=== PATIENT | female | born 1980 | race Caucasian/White ===

== ENCOUNTER → 2016-12-25 | Outpatient (CLI) | payer BC ==
[~2016-12-25] MED LIST: LEVO175T25 PO; PRENTAB26 PO
[2016-12-25 09:41] LABS: BASO % 0.6 %; BASO ABS # 0.04 K/uL (0-0.2); COMPLETE YES; EOS % 5.7 %; HEMATOCRIT 46.5 % (37-47); IG% 0.7 %; LYMPH % 32.5 %; LYMPH ABS # 2.26 K/uL (1.2-3.4); MEAN CORPUSCULAR HEMOGLOBIN 27.9 pg (25-34); MEAN CORPUSCULAR HGB CONC 32.5 g/dl (32-36); MEAN PLATELET VOLUME 9.3 fL (7.4-10.4); MONO % 7.3 %; NEUT % 53.2 %; PLATELET COUNT 345 K/uL (130-400); RED BLOOD COUNT 5.41 M/uL (4.2-5.4); WHITE BLOOD COUNT 6.96 K/uL (4.8-10.8)
[2016-12-25 10:04] LABS: CHOLESTEROL/HDL RATIO 3.2; FERRITIN 59.3 ng/ml (8.0-388.0); THYROID STIMULATING HORMONE 1.13 uIu/ml (0.300-4.500)
== END | disposition home or self-care (01) ==
LOC: C.LAB 07:20
DX: E55.9 Vitamin D deficiency, unspecified (principal); E61.1 Iron deficiency; E53.8 Deficiency of other specified B group vitamins

== ENCOUNTER → 2017-02-01 | Outpatient (CLI) | payer BC | END | disposition home or self-care (01) | LOC: C.PAPS 16:38 | PROVIDERS: ATTEND Obstetrics & Gynecology | DX: Z01.419 Encounter for gynecological examination (general) (routine) without abnormal findings (principal); Z11.51 Encounter for screening for human papillomavirus (HPV) ==

== ENCOUNTER → 2017-05-14 | Outpatient (CLI) | payer BC | END | disposition home or self-care (01) | LOC: C.LAB 16:07 | DX: E61.1 Iron deficiency (principal); E56.9 Vitamin deficiency, unspecified; E03.9 Hypothyroidism, unspecified ==

== ENCOUNTER → 2017-12-10 | Outpatient (CLI) | payer BC | END | disposition home or self-care (01) | LOC: C.LAB 18:04 | DX: E61.1 Iron deficiency (principal) ==

== ENCOUNTER 2023-09-14 10:41 | Observation (INO) ==
--- NOTE | 2023-09-14 11:07 | Emergency Department Note ---
Impression & Plan Acute cholecystitis, Nausea & vomiting, Abdominal pain, RUQ ED Provider Note NAME: ZAINAB LEIJA AGE: 42 SEX: F : 1980 ARRIVES VIA: Walk-In INFORMANT: Patient, Patient significant other, initial nursing triage note ED PROVIDER(S): Jan Barillas MD CHIEF COMPLAINT: Upper abdominal pain, outpatient referral MEDICAL DECISION MAKING: Patient presented due to concern for epigastric was noted to have right upper quadrant pain. IV was established and blood work was obtained along with an EKG troponin chest X ray along with abdominal x-rays and right upper quadrant ultrasound. Patient was ordered IV Toradol Zofran and fluids. Patient blood work shows a normal white counts but does have a left shift and a normal hemoglobin and platelet count kidney functions unremarkable with normal LFTs and lipase urinalysis not evidence of blood or infection. Right upper quadrant ultrasound does show multiple gallstones thickened gallbladder wall there is concern for acute cholecystitis. I did speak the on-call general surgery team. Patient was ordered Mefoxin. Patient was informed of the findings. Patient does feel improved. I did speak with Dr. Rosales who did evaluate the patient at bedside and patient was taken to the OR for operative treatment. Discussion w/ other healthcare providers: Dr. Rosales with general surgery Prior /Outside records reviewed: None Differential diagnosis: Appendicitis, ovarian cyst, ovarian torsion, ectopic , TOA, PID, diverticulitis, UTI, obstruction, inflammatory bowel disease, renal colic, PUD, pancreatitis, biliary pathology, hernia, volvulus, constipation, as well as other pathologies were considered. Diagnostics, as interpreted by me: ECG: Normal sinus rhythm, rate of 86, normal intervals, normal axis no ST elevations. Cardiac monitoring: An order was placed for continuous cardiac monitoring. The monitor shows a rate of 87 with sinus rhythm. Patient was placed on pulse oximetry Medical decision rules: None Imaging studies: I informally interpreted the patient's right upper quadrant ultrasound which does show gallstones with formal report to follow. I informally interpreted the patient's chest and abdominal x-rays which did not show evidence of free air or pneumonia HPI: Patient presents due to concern for upper abdominal pain that she describes in the epigastrium just below the rib cage. Patient states that she developed the symptoms last evening thought it was heartburn related took antacid Gas-X and states that she vomited maybe 10 times during the night. The patient did have some associated chills. Patient states that she has not vomited in the last 2 hours. She does state that laying back may make it worse but being more scrunched up may improve some of the symptoms. The patient did recently travel to [place] but denies any changes in medications. Patient states that one of her work colleagues is sick but is unsure as to the symptoms or why. Patient did have a type of soup at a teacher conference was told that it was nondairy and not an gluten. Patient states that she has a history of celiac's and does not think that she has suffered any cross given the emanation but did have the soup yesterday. Patient denies any chest pains or shortness of breath. No history of DVT or PE no leg swelling or calf pain the patient does not take any control. No recent surgeries procedures or hospitalizations. PAST MEDICAL HISTORY: See Below PAST SURGICAL HISTORY: See Below SOCIAL HISTORY: See Below HOME MEDICATIONS: See Below ALLERGIES: See Below VITALS: See Below PHYSICAL EXAMINATION: GENERAL: NAD, non-toxic. Wearing glasses. EYE EXAM: Normal conjunctiva. PERRL, no anisocoria and EOM's grossly intact w/o pain. OROPHARYNX: Moist mucus membranes, grossly normal dentition. NECK: Trachea midline, no stridor. Supple, no nuchal rigidity, no adenopathy, non-tender. No signs of meningismus. FROM of the neck with good chin to chest and neck extension. LUNGS: Clear to auscultation. Normal chest wall mechanics. HEART: NSR, no MRG. ABDOMEN: Abdomen soft, right upper quadrant pain, positive Baron's,, no masses, no rebound or guarding. BACK: No CVA TTP. SKIN: No rashes and no bruising. UPPER EXTREMITIES: Upper extremities are grossly normal. LOWER EXTREMITIES: Grossly normal, no edema. NEURO EXAM: A&O x3, cranial nerves II-XII grossly intact, normal speech, moves all 4 extremities. Past Med/Surg History Medical History (Updated 09/14/23 @ 19:30 by Jan Barillas MD) Postcoital bleeding Vitiligo Celiac disease Hypothyroid Telangiectasia Positive reaction to tuberculin skin test History of chicken pox Surgical History [place] teeth extracted Family History Family/Other Breast cancer Endometriosis Spina bifida Grandmother (Maternal) Breast cancer Grandfather (Maternal) Prostate cancer Denies family history of Ovarian cancer Myocardial infarction Colorectal cancer Social History Smoking Status: Never smoker Second Hand Exposure: No; Do You Dip or Chew Tobacco: No; Hx Alcohol Use: Yes Alcohol type: wine Alcohol Intake Frequency: Monthly or Less Hx Substance Use: No Preferred Language: Romanian Communication Ability: Effective Visual Impairment: No Limitations Hearing Ability: Normal 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 Required: No Beliefs That Will Affect Care: None marital status: Current Living Situation: Spouse and Family Current Living Situation Comment: 2 story current occupational status: employed 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 How many Children do You have: 3 Other Information That Helps Us Care for You: No Feels Safe at Home: Yes Safety Concerns: Feels Safe At This Time Childhood Exposure to Second-Hand Smoke: No Diet: gluten free Diet Comment: gluten and dairy free caffeine: No during the past year weight has: remained stable Dental Care, Regularly: Yes Physical Activity Frequency: 3-4 Times per Week Seatbelt Use: always Sunscreen Use: Yes Assistive Devices: Contacts and Glasses Allergies Allergies Allergy/AdvReac Type Severity Reaction Status Date / Time gluten Allergy Unknown UNKNOWN Verified 08/21/23 12:59 iron dextran complex Allergy Unknown Verified 08/21/23 12:59 Home Meds Previous Rx's Medication Instructions Recorded levothyroxine 137 mcg tablet 137 mcg PO DAILY #90 tabs 02/07/23 oxycodone 5 mg tablet 5 - 10 mg (1 - 2 x 5 mg) PO 09/14/23 .[id number] PRN pain #15 tabs Results & Data (ED) Vital Signs Vital Signs - 24 hr 09/14/23 10:41 09/14/23 11:15 09/14/23 11:19 Temperature 36.6 C Temperature Source Temporal Artery Scan Pulse Rate 103 H Pulse Rate [Apical] 86 Pulse Rhythm [Apical] Regular Pulse Strength [Apical] Normal Respiratory Rate 18 18 Respiratory Effort / Characteristics Non-Labored Respiratory Depth Normal Respiratory Pattern Regular Blood Pressure 112/70 Blood Pressure [Right Arm] 126/80 Blood Pressure Mean 84 Blood Pressure Mean [Right Arm] 95 Blood Pressure Position [Right Arm] Sitting Pulse Oximetry 100 100 Oxygen Delivery Method Room Air Room Air Sepsis Recent Fever Within 48 Hours No Sepsis New/Unexplained Change in Mental Status N/A Sepsis Action Taken by Nursing No Action Required 09/14/23 11:21 09/14/23 11:47 09/14/23 14:40 Temperature Temperature Source Pulse Rate 83 91 H Pulse Rate [Apical] 77 Pulse Rhythm [Apical] Pulse Strength [Apical] Respiratory Rate 18 20 Respiratory Effort / Characteristics Non-Labored Respiratory Depth Normal Respiratory Pattern Regular Blood Pressure Blood Pressure [Right Arm] 121/75 Blood Pressure Mean Blood Pressure Mean [Right Arm] 90 Blood Pressure Position [Right Arm] Pulse Oximetry 100 96 Oxygen Delivery Method Room Air Room Air Sepsis Recent Fever Within 48 Hours Sepsis New/Unexplained Change in Mental Status Sepsis Action Taken by Nursing 09/14/23 15:12 Temperature 36.9 C Temperature Source Oral Pulse Rate Pulse Rate [Apical] 80 Pulse Rhythm [Apical] Pulse Strength [Apical] Respiratory Rate 17 Respiratory Effort / Characteristics Non-Labored Spontaneous Respiratory Depth Normal Respiratory Pattern Regular Blood Pressure Blood Pressure [Right Arm] 116/89 Blood Pressure Mean Blood Pressure Mean [Right Arm] 98 Blood Pressure Position [Right Arm] Pulse Oximetry 100 Oxygen Delivery Method Room Air Sepsis Recent Fever Within 48 Hours Sepsis New/Unexplained Change in Mental Status Sepsis Action Taken by [facility] Medications Current Medication List: was personally reviewed by me Laboratory Data Attestation: I reviewed the patient's lab results. 09/14/23 11:24 09/14/23 11:24 Lab Results 09/14/23 09/14/23 09/14/23 Range/Units 11:24 11:28 15:05 WBC 9.94 (4.8-10.8) K/ul RBC 5.54 H (4.20-5.40) M/uL Hgb 14.7 (12.0-16.0) g/dl Hct 45.6 (37.0-47.0) % MCV 82.3 (80.0-100.0) fL MCH 26.5 (25.0-34.0) pg MCHC 32.2 (32.0-36.0) g/dL RDW Std Deviation 43.1 (36.4-46.3) fL RDW Coeff of [place] 14.5 (11.5-14.5) % Plt Count 370 (130-400) K/uL MPV 9.4 (9.4-12.4) fL Immature Gran % (Auto) 0.4 % Neut % (Auto) 79.6 % Lymph % (Auto) 14.4 % [place] % (Auto) 4.5 % Eos % (Auto) 0.5 % Baso % (Auto) 0.6 % Neut # (Auto) 7.91 H (1.40-6.50) K/uL Lymph # (Auto) 1.43 (1.20-3.40) K/uL [place] # (Auto) 0.45 (0.11-0.59) K/uL Eos # (Auto) 0.05 (0.00-0.50) K/uL Baso # (Auto) 0.06 (0.00-0.20) K/uL Immature Gran # (Auto) 0.04 (0.01-0.20) K/uL Sodium 139 (136-145) mmol/L Potassium 3.8 (3.5-5.1) mmol/L Chloride 104 (98-107) mmol/L Carbon Dioxide 27 (21-32) mmol/L Anion Gap 8 (3-11) BUN 9 (6-23) mg/dl Creatinine 0.78 (0.6-1.2) mg/dl Est Cr Clr Drug Dosing 93.8 ml/min Est GFR ( Amer) 107.9 ml/min Est GFR (Non-Af Amer) 93.1 ml/min BUN/Creatinine Ratio 11.5 (10-20) Glucose 101 H (70-99(Fasting)) mg/dl Calcium 9.9 (8.6-10.3) mg/dl Total Bilirubin 0.7 (0.2-1.0) mg/dl AST 14 (13-39) U/L ALT 11 (7-52) U/L Alkaline Phosphatase 71 (34-104) U/L Troponin I High Sens 3.3 (0-14) pg/ml Total Protein 7.9 (6.0-8.3) gm/dl Albumin 4.7 (3.4-5.0) gm/dl Globulin 3.2 (2.5-4.0) gm/dl Albumin/Globulin Ratio 1.5 (0.9-2) Lipase 32 (11-82) U/L Urine Color Yellow Urine Appearance Clear (Clear) Urine pH 6.5 (4.5-7.5) Ur Specific [place] 1.015 (1.000-1.030) Urine Protein Negative (Negative) Urine Glucose (UA) Negative (Negative) Urine Ketones Negative (Negative) Urine Blood Negative (Negative) Urine Nitrite Negative (Negative) Urine Bilirubin Negative (Negative) Urine Urobilinogen Negative (Negative) Ur Leukocyte Esterase Negative (Negative) POC Ur Test NEG (NEG) Administered Medications Lactated Ringer's (Lr) 1,000 mls @ 100 mls/hr IV .Q10H LUIS ALBERTO Stop: 10/14/23 18:24 Last Admin: 09/14/23 18:53 Dose: 100 mls/hr Documented By: NICHOLAS Discontinued Medications Bupivacaine HCl/Epinephrine Bitart (Bupivacaine/Epinephrine 0.25% 1:200,000 30 Ml Vial) Confirm Administered Dose 30 ml .ROUTE .[facility] Stop: 09/14/23 15:03 Last Admin: 09/14/23 17:05 Dose: 30 ml Documented By: [id number] Sodium Chloride (Nss) 1,000 mls @ 999 mls/hr IV .Q1H1M STA Stop: 09/14/23 12:44 Last Infusion: 09/14/23 13:05 Dose: Infused Documented By: Admin: 09/14/23 11:55 Dose: 999 mls/hr Documented By: JORDIN Cefoxitin Sodium (Mefoxin) 2,000 mg in 60 mls @ 100 mls/hr IV NOW STA Stop: 09/14/23 13:35 Last Infusion: 09/14/23 14:06 Dose: Infused Documented By: Admin: 09/14/23 13:12 Dose: 100 mls/hr Documented By: GAMAL Lactated Ringer's (Lr) 1,000 mls @ 15 mls/hr IV .Q24H LUIS ALBERTO Stop: 10/14/23 15:29 Last Infusion: 09/14/23 15:56 Dose: Infused Documented By: Admin: 09/14/23 15:24 Dose: 15 mls/hr Documented By: ALVARO Ketorolac Tromethamine (Ketorolac Tromethamine 15 Mg/Ml Vial) 10 mg IV NOW STA Stop: 09/14/23 11:45 Last Admin: 09/14/23 11:54 Dose: 10 mg Documented By: JORDIN Miscellaneous ( Floseal Hemostatic Matrix 10ml) 10 ml TOP ONCE ONE Stop: 09/14/23 17:04 Last Admin: 09/14/23 17:03 Dose: 10 ml Documented By: [id number] Ondansetron HCl (Ondansetron Inj 2 Mg/Ml 2 Ml Vial) 4 mg IV NOW STA Stop: 09/14/23 11:45 Last Admin: 09/14/23 11:54 Dose: 4 mg Documented By: JORDIN Imaging Data Radiologist's Impression: Chest/Abdomen X-ray 09/14/23 11:45 CHEST AND ABDOMEN 2 VIEWS HISTORY: epigastric pain COMPARISON: Chest and abdominal series 11/24/2022. FINDINGS: The lungs are clear. The cardiomediastinal silhouette is within normal limits. There is no pneumoperitoneum or pneumatosis. The bowel gas pattern is unremarkable. No evidence for bowel obstruction. No renal or ureteral calculi. IMPRESSION: No acute cardiopulmonary process. No evidence for bowel obstruction. ACT 112: Negative or not required by law. Electronically signed by: Missael De Souza M.D. 09/14/2023 1:32 PM Gallbladder Ultrasound 09/14/23 11:45 ABDOMINAL ULTRASOUND, RIGHT UPPER QUADRANT HISTORY: epigastric, RUQ pain. COMPARISON: Abdominal ultrasound 05/06/2007. FINDINGS: Pancreas: The pancreas demonstrates a normal echotexture. Liver: Unremarkable. Gallbladder: Multiple small gallstones with a thickened gallbladder wall. The sonographic Baron's sign was unable to be properly evaluated due to the patient's recent pain medication. CBD: 5 mm. Right kidney: No hydronephrosis. IMPRESSION: Cholelithiasis with gallbladder wall thickening. Acute cholecystitis is the diagnosis of exclusion. Follow-up surgical consultation recommended. ACT 112: Negative or not required by law. Electronically signed by: Missael De Souza M.D. 09/14/2023 12:42 PM Discharge Plan Visit Data Chief Complaint: Cardiac Assessment Stated Complaint: VOMITING, PAIN BELOW BREAST, REF BY DOC ED Provider: Jan Barillas Discharge Problem: Acute cholecystitis, Nausea & vomiting, Abdominal pain, RUQ Patient Disposition: Admitted As Inpatient Discharge Instructions Interventions: ED Discharge Assessment Last Done: 09/14/23 15:06 Discharge Problem: Nausea & vomiting Qualifiers: Vomiting type: unspecified Qualified Code(s): R11.2 - Nausea with vomiting, unspecified
[2023-09-14] MEDS: KETOROLAC TROMETHAMINE 15 MG/ML VIAL IV STA (11:54)
[2023-09-14] MEDS: ONDANSETRON INJ 2 MG/ML 2 ML VIAL IV STA (11:54)
[2023-09-14] MEDS: SODIUM CHLORIDE 0.9% 1,000 ML IV STA (11:55)
[2023-09-14 12:07] LABS: Basophils # (auto) 0.06 K/uL (0.00-0.20); Basophils % (auto) 0.6 %; Eosinophils # (auto) 0.05 K/uL (0.00-0.50); Eosinophils % (auto) 0.5 %; Hematocrit (blood only) 45.6 % (37.0-47.0); Hemoglobin 14.7 g/dl (12.0-16.0); Immature Granulocytes # (auto) 0.04 K/uL (0.01-0.20); Immature Granulocytes % (auto) 0.4 %; Lymphocytes # (auto) 1.43 K/uL (1.20-3.40); Lymphocytes % (auto) 14.4 %; Mean Corpuscular Hemoglobin 26.5 pg (25.0-34.0); Mean Corpuscular Hgb Conc 32.2 g/dL (32.0-36.0); Mean Corpuscular Volume 82.3 fL (80.0-100.0); Mean Platelet Volume 9.4 fL (9.4-12.4); Monocytes # (auto) 0.45 K/uL (0.11-0.59); Monocytes % (auto) 4.5 %; Neutrophils # (auto) 7.91 K/uL (1.40-6.50); Neutrophils % (auto) 79.6 %; Platelet Count 370 K/uL (130-400); RDW Coefficient of Variation 14.5 % (11.5-14.5); RDW Standard Deviation 43.1 fL (36.4-46.3); Red Blood Count 5.54 M/uL (4.20-5.40); White Blood Count 9.94 K/ul (4.8-10.8)
[2023-09-14 12:23] LABS: Appearance Urine Clear (Clear); Bilirubin Urine Negative (Negative); Blood Urine Negative (Negative); Color Urine Yellow; Glucose Urine UA Negative (Negative); Ketones Urine Negative (Negative); Leukocyte Esterase Urine Negative (Negative); Nitrite Urine Negative (Negative); Protein Urine Negative (Negative); Specific Gravity Urine 1.015 (1.000-1.030); Urobilinogen Urine Negative (Negative); pH Urine 6.5 (4.5-7.5)
[2023-09-14 12:35] LABS: Albumin Globulin Ratio 1.5 (0.9-2); Albumin Level 4.7 gm/dl (3.4-5.0); BUN Creatinine Ratio 11.5 (10-20); Bilirubin,Total 0.7 mg/dl (0.2-1.0); Calcium 9.9 mg/dl (8.6-10.3); Creatinine Clr Calc Pharmacy 93.8 ml/min; Est GFR (African American) 107.9 ml/min; Est GFR (Non-African American) 93.1 ml/min; Globulin 3.2 gm/dl (2.5-4.0); Potassium 3.8 mmol/L (3.5-5.1); Total Protein 7.9 gm/dl (6.0-8.3)
[2023-09-14 12:41] LABS: Troponin I High Sensitivity 3.3 pg/ml (0-14)
--- NOTE | 2023-09-14 12:44 | Ultrasound Report ---
ABDOMINAL ULTRASOUND, RIGHT UPPER QUADRANT HISTORY: epigastric, RUQ pain. COMPARISON: Abdominal ultrasound 05/06/2007. FINDINGS: Pancreas: The pancreas demonstrates a normal echotexture. Liver: Unremarkable. Gallbladder: Multiple small gallstones with a thickened gallbladder wall. The sonographic Baron's si gn was unable to be properly evaluated due to the patient's recent pain medication. CBD: 5 mm. Right kidney: No hydronephrosis. IMPRESSION: Cholelithiasis with gallbladder wall thickening. Acute cholecystitis is the diagnosis of exclusion. F ollow-up surgical consultation recommended. ACT 112: Negative or not required by law. Electronically signed by: Missael De Souza M.D. 09/14/2023 12:42 PM
[2023-09-14] MEDS: cefOXitin 2,000 MG/60 ML BAG IV STA (13:12)
--- NOTE | 2023-09-14 13:34 | XRay Report ---
CHEST AND ABDOMEN 2 VIEWS HISTORY: epigastric pain COMPARISON: Chest and abdominal series 11/24/2022. FINDINGS: The lungs are clear. The cardiomediastinal silhouette is within normal limits. There is no pneumoperitoneum or pneumatosis. The bowel gas pattern is unremarkable. No evidence for b owel obstruction. No renal or ureteral calculi. IMPRESSION: No acute cardiopulmonary process. No evidence for bowel obstruction. ACT 112: Negative or not required by law. Electronically signed by: Missael De Souza M.D. 09/14/2023 1:32 PM
[2023-09-14] MEDS ORDERED: LIDOCAINE 2% 2 ML VIAL/AMP(20MG/ML) INFIL ONE (14:51)
[2023-09-14] MEDS ORDERED: fentaNYL citrate PF 100 MCG/2 ML VIAL ONE ×2 (14:51→16:21)
[2023-09-14] MEDS ORDERED: ROCURONIUM BROMIDE 10 MG/ML 5 ML VIAL IV ONE (14:51)
[2023-09-14] MEDS ORDERED: PROPOFOL IV EMULSION 10 MG/ML 20 ML VIAL IV ONE (14:51)
[2023-09-14] MEDS ORDERED: ONDANSETRON INJ 2 MG/ML 2 ML VIAL ONE (14:51)
[2023-09-14] MEDS ORDERED: MIDAZOLAM HCL 1 MG/ML 2ML VIAL ONE (14:51)
[2023-09-14] MEDS ORDERED: ACETAMINOPHEN 1000 MG/100 ML IV IV ONE (14:53)
[2023-09-14] MEDS ORDERED: DROPERIDOL 5 MG/2 ML VIAL ONE (15:00)
[2023-09-14] MEDS: LACTATED RINGER'S 1,000 ML IV SCH ×2 (15:24→18:53)
[2023-09-14] MEDS ORDERED: fentaNYL citrate PF 100 MCG/2 ML VIAL IV PRN (15:34)
[2023-09-14] MEDS ORDERED: ONDANSETRON INJ 2 MG/ML 2 ML VIAL IV PRN ×2 (15:34→18:25)
[2023-09-14] MEDS ORDERED: PROMETHAZINE HCL 6.25 MG in SODIUM CHLORIDE 0.9% 50 ML IV PRN (15:34)
[2023-09-14] MEDS ORDERED: ePHEDrine sulfate 50 MG/ML AMP IV PRN (15:34)
[2023-09-14] MEDS ORDERED: ATROPINE SULFATE 0.1 MG/ML 10ML SYR IV PRN (15:34)
[2023-09-14] MEDS ORDERED: HYDROmorphone INJ 2 MG/ML SYR/VIAL IV PRN (15:34)
--- NOTE | 2023-09-14 15:34 | Anesthesiology Consultation ---
Date of Service September 14, 2023 Assessment & Plan Chart Review Chart Review: Acceptable Risk for Surgery and Patient NOT seen in Pre Admission Testing Consults Requested none ASA ASA2E Proposed Anesthesia Anesthesia Type: General Risk / Benefits Reviewed With: PT / POA / Parent / Guardian, Accepts Plan and Informed Consent Obtained History Surgery Operation Date: 09/14/23 13:05 Proposed Procedures p Laparoscopic Cholecystectomy, Possible Open, Possible Cholangiogram - Shay Rosales, DO Height/Weight Height: 5 ft 8 in Weight: 71.4 kg Allergies Allergy/AdvReac Type Severity Reaction Status Date / Time gluten Allergy Unknown UNKNOWN Verified 08/21/23 12:59 iron dextran complex Allergy Unknown Verified 08/21/23 12:59 Medications Home Medications Medication Instructions Recorded Confirmed Last Taken levothyroxine 137 mcg tablet 137 mcg PO DAILY #90 tabs 02/07/23 09/14/23 Unknown Active Medications Generic Name Dose Route Start Last Admin Trade Name Freq PRN Reason Stop Dose Admin Lactated Ringer's 1,000 mls @ 15 mls/hr 09/14/23 15:30 09/14/23 15:24 Lr IV 10/14/23 15:29 15 mls/hr .Q24H LUIS ALBERTO Administration KVO NPO Date Last Intake of Fluids: 09/14/23 Time Last Intake of Fluids: 05:00 Date Last Intake of Solids: 09/13/23 Time Last Intake of Solids: 19:30 Past Medical History Medical History Postcoital bleeding Vitiligo Celiac disease Hypothyroid Telangiectasia Positive reaction to tuberculin skin test History of chicken pox Exercise / Class Metabolic Activity II 4-5 Yardwork/Stairs/Walk up hill Past Family History Family History Family/Other Breast cancer Endometriosis Spina bifida Grandmother (Maternal) Breast cancer Grandfather (Maternal) Prostate cancer Denies family history of Ovarian cancer Myocardial infarction Colorectal cancer Past Surgical History Surgical History [place] teeth extracted Past Anesthesia History No Hx of Anesthesia Complications and No Family Hx of Anesthesia Complications History of PONV No Hx of PONV and No Hx of Motion Sickness Social History Smoking Status: Current every day smoker Do You Dip or Chew Tobacco: No Hx Alcohol Use: Yes Alcohol type: wine Hx Substance Use: No Physical Exam Vital Signs Last Vital Signs Temp 36.9 C 09/14/23 15:12 Pulse 80 09/14/23 15:12 Resp 17 09/14/23 15:12 BP 116/89 09/14/23 15:12 Pulse Ox 100 09/14/23 15:12 O2 Del Method Room Air 09/14/23 15:12 ENMT Mouth: no dentition abnormality Thyromental Distance: > or= 3.5 Finger Breadths Mallampati Class: II Neck normal visual inspection Respiratory normal respiratory effort Auscultation: lungs clear to auscultation bilaterally Cardiovascular Rate/Rhythm: regular rate and regular rhythm Psychiatric Orientation: alert Testing Laboratory Results 09/14/23 11:24 09/14/23 11:24 Urine Color Yellow 09/14/23 11:28 Urine Appearance Clear (Clear) 09/14/23 11:28 Urine pH 6.5 (4.5-7.5) 09/14/23 11:28 Ur Specific [place] 1.015 (1.000-1.030) 09/14/23 11:28 Urine Protein Negative (Negative) 09/14/23 11:28 Urine Glucose (UA) Negative (Negative) 09/14/23 11:28 Urine Ketones Negative (Negative) 09/14/23 11:28 Urine Nitrite Negative (Negative) 09/14/23 11:28 Ur Leukocyte Esterase Negative (Negative) 09/14/23 11:28 09/14/23 15:05 POC Ur Test NEG
--- NOTE | 2023-09-14 15:55 | History & Physical Report ---
Date of Service September 14, 2023 Assessment & Plan (1) Acute cholecystitis: Plan: Her US images and results were personally viewed and interpreted by myself She has sonographic and physical exam findings consistent with acute cholecystitis Will plan on laparoscopic cholecystectomy, possible open, possible IOC Consent was obtained, risks discussed including bleeding, infection, bile leak, ductal injury History of Present Illness Chief Complaint: Abdominal pain Primary Care Provider: Danny Schmitt DO This is a 42 yo female who presented with epigastric and RUQ abdominal pain since yesterday evening. She states it was sharp with radiation to the back. She had an episode of emesis. She denies any scleral icterus, jaundice, tea- colored urine. No abdominal surgeries. Allergies Allergy/AdvReac Type Severity Reaction Status Date / Time gluten Allergy Unknown UNKNOWN Verified 08/21/23 12:59 iron dextran complex Allergy Unknown Verified 08/21/23 12:59 Home Medications Medication Instructions Recorded Confirmed Type levothyroxine 137 mcg tablet 137 mcg PO DAILY #90 tabs 02/07/23 09/14/23 Rx Past Med/Surg History Medical History (Updated 09/14/23 @ 15:54 by Shay Rosales DO) Postcoital bleeding Vitiligo Celiac disease Hypothyroid Telangiectasia Positive reaction to tuberculin skin test History of chicken pox Surgical History [place] teeth extracted Family History Family/Other Breast cancer Endometriosis Spina bifida Grandmother (Maternal) Breast cancer Grandfather (Maternal) Prostate cancer Denies family history of Ovarian cancer Myocardial infarction Colorectal cancer Social History Smoking Status: Current every day smoker Second Hand Exposure: No; Do You Dip or Chew Tobacco: No; Hx Alcohol Use: Yes Alcohol type: wine Alcohol Intake Frequency: Monthly or Less Hx Substance Use: No Preferred Language: Georgian Communication Ability: Effective Visual Impairment: No Limitations Hearing Ability: Normal Spinner Concrete Pipe Required: No marital status: Current Living Situation: Spouse and Family Current Living Situation Comment: spouse and 3 kids current occupational status: employed 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 How many Children do You have: 3 Feels Safe at Home: Yes Childhood Exposure to Second-Hand Smoke: No Diet: gluten free Diet Comment: gluten and dairy free caffeine: No during the past year weight has: remained stable Dental Care, Regularly: Yes Physical Activity Frequency: 3-4 Times per Week Seatbelt Use: always Sunscreen Use: Yes Assistive Devices: Contacts and Glasses Review of Systems Constitutional: no fever and no chills Eyes: no blind spots and no worsening vision Ear, Nose, Mouth, Throat: no ear pain and no hearing loss Respiratory: no cough and no dyspnea Cardiovascular: no chest pain and no dyspnea on exertion Gastrointestinal: + abdominal pain, + nausea and + vomitin g Genitourinary: no dysuria and no hot flashes Musculoskeletal: no back pain and no neck pain Integumentary: no acne, no skin ulcer, no erythema and no urticaria Neurologic: no gait abnormality, no confusion and no memory loss Psychiatric: no behavioral changes and no depression Hematologic / Lymphatic: no easy bleeding and no easy bruising Physical Exam Constitutional: WD/WN, vitals as above Eyes: PERRL, conjunctivae normal, anicteric sclerae ENMT: external ear and nose normal, oropharynx normal Neck: trachea midline, no thyromegaly Respiratory: normal respiratory effort, lungs clear to auscultation Cardiovascular: RRR, no murmur, no edema Gastrointestinal (Abdomen): Inspection/Auscultation: abdomen normal to inspection; abdomen not distended Percussion/Palpation: + abdomen tender (RUQ), + guarding and abdomen soft; no ascites Musculoskeletal: no cyanosis or clubbing, extremities motor strength 5/5 Skin: no rashes, warm and dry Neurologic: PERRL, EOMI, accommodation nl, no face palsy, no dysarthria Psychiatric: A+Ox3, euthymic affect Results & Data Results & Data Vital Signs (Past 12 Hours) Vital Signs Temp Pulse Pulse Resp BP BP Pulse Ox 09/14/23 15:12 36.9 C 80 17 116/89 100 09/14/23 14:40 77 20 121/75 96 09/14/23 11:47 91 H 18 100 09/14/23 11:21 83 09/14/23 11:19 09/14/23 11:15 86 18 126/80 100 09/14/23 10:41 36.6 C 103 H 18 112/70 100 O2 Del Method 09/14/23 15:12 Room Air 09/14/23 14:40 Room Air 09/14/23 11:47 Room Air 09/14/23 11:21 09/14/23 11:19 Room Air 09/14/23 11:15 Room Air 09/14/23 10:41 PG Care Time/CCT Total # of Minutes Spent Total Time Spent with Patient: Total time spent is greater than 50% in coordination of care (as documented) at patient's floor/unit and/or counseling patient: Coding Level of Care Code 53959 INT INP/OBS CARE 3/75MIN Diagnoses Acute cholecystitis K81.0
[2023-09-14] MEDS ORDERED: diphenhydrAMINE 50 MG/ML VIAL ONE (16:29)
[2023-09-14] MEDS ORDERED: KETOROLAC 30 MG/ML VIAL ONE (16:38)
[2023-09-14] MEDS ORDERED: GLYCOPYRROLATE 0.2 MG/ML VIAL ONE (16:42)
[2023-09-14] MEDS ORDERED: NEOSTIGMINE METHYLSULFATE 1 MG/ML 10ML VIAL ONE (16:42)
[2023-09-14] MEDS: FLOSEAL HEMOSTATIC MATRIX 10ML TOP ONE (17:03)
[2023-09-14] MEDS: BUPIVACAINE/EPINEPHRINE 0.25% 1:200,000 30 ML VIAL ONE (17:05)
--- NOTE | 2023-09-14 17:11 | Post Operative Brief Note ---
PG Immediate Post Op with CF Date of Surgery September 14, 2023 Pre & Post Diagnosis Operation Date: 09/14/23 13:05 Pre-Op Diagnosis: Acute cholecystitis Post-Op Diagnosis: Acute cholecystitis I identified the patient and participated in the time-out.: Yes Procedure Operation Date: 09/14/23 13:05 Actual Procedures p Laparoscopic Cholecystectomy(Not Applicable) - Shay Rosales DO Surgeon Shay Rosales DO Line Assembler Aircraft Aretha MCKOEN Estimated Blood Loss 25 Findings See Below Acute cholecystitis, hydrops of gallbladder Specimens Specimen Description: A. Gallbladder and contents Anesthesia Type General Complications none Disposition Disposition: Recovery Room
--- NOTE | 2023-09-14 17:15 | Operative Report ---
PG Post Operative Report Pre & Post Diagnosis Operation Date: 09/14/23 13:05 Pre-Op Diagnosis: Acute cholecystitis Post-Op Diagnosis: Acute cholecystitis I identified the patient and participated in the time-out.: Yes Procedure Operation Date: 09/14/23 13:05 Actual Procedures p Laparoscopic Cholecystectomy(Not Applicable) - Shay Rosales DO Surgeon Shay Rosales DO Trailer Driver Aretha MCKEON Estimated Blood Loss 25 Findings See Below Acute cholecystitis, gallbladder hydrops Fluids see anesthesia record Specimens Gallbladder to pathology Drains None Anesthesia Type General Complications none Disposition Disposition: Recovery Room Indications 42 yo female with acute cholecystitis Description of Procedure The patient was brought to the operating room and placed in the supine position with both arms extended. At this time she underwent general endotracheal anesthesia without any problems. She was given appropriate pre-operative antibiotics. Her abdomen prepped and draped in the usual sterile fashion. A timeout was called, the procedure was verified as Laparoscopic cholecystectomy, possible open, possible intra-operative cholangiogram. Surgical, nursing and anesthesia teams agreed and the procedure was begun. After injection of 0.25% Marcaine with epinephrine, a supraumbilical vertical incision was made and carried down to the fascia using S-retractors. The abdominal wall was then elevated with towel clamps and abdomen entered using the Veress needle confirming position using the saline drop test. Pneumoperitoneum was established. 5mm trocar was placed. Laparoscope was introduced. No injury from entry into the abdomen was visualized after inspection of the abdomen. Three further ports were placed under direct visualization. One 11mm in the subxiphoid region and two 5mm in the RUQ. At this time the abdomen was ins pected and the gallbladder identified. The gallbladder fundus was grasped and retracted cephalad. The gallbladder infundibulum was then grasped and retracted laterally. The cystic duct and cystic artery were then identified and skeletonized. The critical view of safety was obtained. They were both then clipped twice proximally and once distally and then divided using scissors. The gallbladder was then taken off of the liver bed using electrocautery and placed in an endocatch bag and removed from the subxiphoid port. The gallbladder itself was very friable and adhered to the liver bed. The liver bed was cauterized and 10mL Floseal hemostatic agent was placed in the gallbladder fossa. The liver bed was then inspected and no bile leak or bleeding was evident. The subxiphoid port was then closed using 0-Vicryl using the suture passer. The trocars were then removed under direct visualization and no bleeding was present. Abdomen was desufflated. The skin was then closed using 4-0 Monocryl in a subcuticular fashion. Surgical glue was applied. Needle and sponge counts were correct x 2. At this time the patient was awoken from anesthesia and extubated having remained stable throughout the entire case. The patient was then transported to PACU in stable condition. The physician economic research assistant was present and scrubbed for the entire case. She was essential in positioning, prepping and draping the patient, driving the laparoscope, retraction and exposure, closure of the incisions and placement of the dressings. I attest to the content of the Intraoperative Record and any orders documented therein. Any exceptions are noted below.
--- NOTE | 2023-09-14 18:16 | Anesthesiology Progress Note ---
Date of Service September 14, 2023 Anesthesia Post Procedure Vital Signs Vital Signs: Temp Pulse Pulse Resp BP BP Pulse Ox 09/14/23 18:05 37.2 C 53 L 16 138/83 98 09/14/23 17:55 36.4 C L 51 L 16 131/80 98 09/14/23 17:45 55 L 16 138/84 100 09/14/23 17:35 73 14 120/78 99 09/14/23 17:27 36.0 C L 86 16 122/81 100 09/14/23 15:12 36.9 C 80 17 116/89 100 09/14/23 14:40 77 20 121/75 96 09/14/23 11:47 91 H 18 100 09/14/23 11:21 83 09/14/23 11:19 09/14/23 11:15 86 18 126/80 100 09/14/23 10:41 36.6 C 103 H 18 112/70 100 O2 Del Method O2 Flow Rate 09/14/23 18:05 Room Air 09/14/23 17:55 Room Air 09/14/23 17:45 Oxymask 4 09/14/23 17:35 Oxymask 4 09/14/23 17:27 Oxymask 4 09/14/23 15:12 Room Air 09/14/23 14:40 Room Air 09/14/23 11:47 Room Air 09/14/23 11:21 09/14/23 11:19 Room Air 09/14/23 11:15 Room Air 09/14/23 10:41 Transfer of Care Handoff Completed per policy Notes Mental Status: alert / awake / arousable Patient Amnestic to Procedure: Yes Nausea / Vomiting: adequately controlled Pain: adequately controlled Airway Patency, RR, SpO2: stable & adequate BP & HR: stable & adequate Hydration State: stable & adequate Anesthetic Complications: no major complications apparent
[2023-09-14] MEDS ORDERED: MoRPHine SULFATE 4 MG/ML 1 ML CARP\\VIAL IV PRN (18:25)
[2023-09-14] MEDS ORDERED: MoRPHine SULFATE 2 MG/ML CARP IV PRN (18:25)
[2023-09-14] MEDS ORDERED: oxyCODONE HCL IR 5 MG TAB (IMMEDIATE RELEASE) PO PRN (18:25)
[2023-09-14] MEDS ORDERED: ACETAMINOPHEN 1,000 MG/100 ML VIAL IV PRN (18:25)
--- NOTE | 2023-09-14 21:31 | Electrocardiogram Report ---
Test Reason : Blood Pressure : / mmHG Vent. Rate : 086 BPM Atrial Rate : 086 BPM P-R Int : 124 ms QRS Dur : 078 ms QT Int : 372 ms P-R-T Axes : 078 039 071 degrees QTc Int : 445 ms Normal sinus rhythm Normal ECG No previous ECGs available Confirmed by Scot Montes ([id number]) on 09/14/2023 9:31:35 PM Referred By: Danny Schmitt Confirmed By:Scot Montes
[2023-09-14] MEDS: oxyCODONE HCL IR 5 MG TAB (IMMEDIATE RELEASE) PO PRN (22:12)
[2023-09-15] MEDS: LEVOTHYROXINE SODIUM 137 MCG TABLET PO SCH (06:01)
[2023-09-15 07:29] LABS: Basophils # (auto) 0.01 K/uL (0.00-0.20); Basophils % (auto) 0.1 %; Hemoglobin 11.8 g/dl (12.0-16.0); Immature Granulocytes # (auto) 0.06 K/uL (0.01-0.20); Immature Granulocytes % (auto) 0.6 %; Mean Corpuscular Hemoglobin 26.9 pg (25.0-34.0); Mean Corpuscular Hgb Conc 31.9 g/dL (32.0-36.0); Mean Corpuscular Volume 84.5 fL (80.0-100.0); Mean Platelet Volume 9.6 fL (9.4-12.4); Monocytes # (auto) 0.46 K/uL (0.11-0.59); Monocytes % (auto) 4.6 %; Neutrophils # (auto) 8.53 K/uL (1.40-6.50); Neutrophils % (auto) 85.7 %; Platelet Count 281 K/uL (130-400); RDW Coefficient of Variation 14.7 % (11.5-14.5); RDW Standard Deviation 45.7 fL (36.4-46.3); Red Blood Count 4.38 M/uL (4.20-5.40); White Blood Count 9.96 K/ul (4.8-10.8)
[2023-09-15] MEDS: ACETAMINOPHEN 325 MG TAB PO PRN (07:32)
[2023-09-15 07:49] LABS: Albumin Globulin Ratio 1.5 (0.9-2); Albumin Level 3.6 gm/dl (3.4-5.0); BUN Creatinine Ratio 12.3 (10-20); Bilirubin,Total 0.7 mg/dl (0.2-1.0); Calcium 8.5 mg/dl (8.6-10.3); Creatinine Clr Calc Pharmacy 100.2 ml/min; Est GFR (African American) 116.9 ml/min; Est GFR (Non-African American) 100.9 ml/min; Globulin 2.4 gm/dl (2.5-4.0); Potassium 4.1 mmol/L (3.5-5.1)
--- NOTE | 2023-09-15 09:10 | Surgery Progress Note ---
Date of Service September 15, 2023 Assessment & Plan (1) S/P laparoscopic cholecystectomy: Plan: POD #1 s/p Lap Audrey. She is doing well. Her pain is controlled. She denies fevers or chills. She is tolerating a regular diet. Incisions look good. She is voiding on her own and ambulating in her room without issue. She is ok to go home today. Discharge instructions reviewed. She will follow-up with Dr. Rosales in outpatient clinic. Patient seen and examined with Dr. Rosales. Admission and Anticipated Discharge Date Admission Date: September 14, 2023 Supervising Physician Co-Signing Physician Notes Doing well POD#1 Tolerating diet without N/V Pain controlled Will discharge patient today with f/u with me in 2 weeks Subjective Betty is resting comfortably in bed. She reports expected post-op pain. She denies fevers or chills. She denies nausea or vomiting. Review of Systems Constitutional: as per Subjective / HPI; no fever and no chills Cardiovascular: no chest pain, no chest pain at rest, no chest pain with activity, no dyspnea, no dyspnea at rest, no dyspnea on exertion and no calf pain Gastrointestinal: + abdominal pain (expected at surgical i ncisions. ); no nausea and no vomiting Abdominal incisions are intact with surgical glue in place- no signs of infection. Results & Data Vital Signs (Past 12 Hours) Vital Signs Temp Pulse Resp BP Pulse Ox O2 Del Method 09/15/23 08:01 36.6 C 56 L 16 104/71 98 Room Air 09/15/23 05:57 36.8 C 81 16 108/72 94 Room Air 09/15/23 02:13 36.8 C 61 16 117/81 98 Room Air 09/14/23 21:40 36.8 C 67 16 108/72 98 Room Air PG Care Time/CCT Total # of Minutes Spent Total Time Spent with Patient: Total time spent is greater than 50% in coordination of care (as documented) at patient's floor/unit and/or counseling patient: Coding Level of Care Code 63066 Post Operative Follow-Up Diagnoses S/P laparoscopic cholecystectomy Z90.49
--- NOTE | 2023-09-18 13:21 | Discharge Summary ---
Date of Service September 15, 2023 Admission HPI Per Admitting Provider This is a 42 yo female who presented with epigastric and RUQ abdominal pain since yesterday evening. She states it was sharp with radiation to the back. She had an episode of emesis. She denies any scleral icterus, jaundice, tea- colored urine. No abdominal surgeries. Principal Diagnosis acute cholecystitis Discharge Exam Constitutional: as per Subjective / HPI; no fever and no chills Cardiovascular: no chest pain, no chest pain at rest, no chest pain with activity, no dyspnea, no dyspnea at rest, no dyspnea on exertion and no calf pain Gastrointestinal: + abdominal pain (expected at surgical i ncisions. ); no nausea and no vomiting Abdominal incisions are intact with surgical glue in place- no signs of infection. Discharge Data Allergies Allergy/AdvReac Type Severity Reaction Status Date / Time gluten Allergy Unknown UNKNOWN Verified 08/21/23 12:59 iron dextran complex Allergy Unknown Verified 08/21/23 12:59 Consultations 09/14/23 13:00 ED Decision to Admit Stat Procedures Performed Operation Date: 09/14/23 13:05 Actual Procedures p Laparoscopic Cholecystectomy(Not Applicable) - Shay Rosales, Ordered Studies 09/14/23 11:45 US gallbladder Stat Hospital Course (1) S/P laparoscopic cholecystectomy: Patient presented to the [facility] ER 09/14/23 with c/o epigastric and RUQ abdominal pain since yesterday evening. She states it was sharp with radiation to the back. She had an episode of emesis. An ultrasound of the liver and GB showed that she had acute cholecystitis. She underwent a laparoscopic cholecystectomy with Dr. Rosales and was admitted to the hospital post operatively for care and observation. On post operative day one she was tolerating a diet, VSS, pain controlled. She was deemed stable for discharge 09/15/23 and was given d/c instructions and return precautions. Total Time Total Time Spent Total Time Spent (In Minutes): 15 Discharge Plan Discharge Items Patient Disposition: Home - Self-Care Reason For Visit: S/P LAPAROSCOPIC CHOLECYSTECTOMY Discharge Diagnosis: Laparoscopic Cholecystectomy Activity: As commented below Lifting: No more than 10 pounds Bathing Comment: you can shower 09/15/23. no pools or baths for 2 weeks Exercise/Sports: Wait until after follow-up appointment Non-emergency contact: Surgeon Call non-emergency contact if: you have any medication questions, your pain is not controlled, your pain is unusual for you, your temperature is above 101.5, your wound has increased redness, your wound has increased drainage and your wound pain has increased Follow-up/Referrals: Danny Schmitt, [Primary Care Provider] - Shay Rosales, [Physician] - (call office for a follow up in 2 weeks ) Diet: Regular Addtl Attending Provider Instructions: You may remove your outer surgical dressing on 09/16/23. You will have small white bandages on underneath that are over your incision. You may shower with these on. They will tend to fall off on their own in a 7-10 days. You may purchase Tylenol and or Ibuprofen over the counter if needed for addition pain control over the next few days. Take per manufacturers instructions, Do not take more than 3 grams of Tylenol in 24 hours. Pending Studies at Discharge: Yes Studies:: surgical pathology Stand-Alone Forms: My [facility] Medications and DC Order Prescriptions: New oxycodone 5 mg tablet 5 - 10 mg PO .[id number] MDD no more than 6 tabs in 24hours PRN (Reason: pain) Qty: 15 0RF Continued levothyroxine 137 mcg tablet 137 mcg PO DAILY Qty: 90 3RF Discharge Orders: Discharge Order (Routine); Ordered 09/15/23 Ordered By: Paula Newberry/Other Patient Handouts: Having Laparoscopic Cholecystectomy Admission Data Admit Date/Time: 09/14/23 17:18 Attending Provider: Shay Rosales Admit Provider: Shay Rosales Primary Care Provider: Danny Schmitt Other Providers: Shay Rosales Other Interventions: Discharge Summary Assessment (RN) Last Done: 09/15/23 09:14 Supervising Physician Co-Signing Physician Notes Doing well POD#1 Tolerating diet without N/V Pain controlled Will discharge patient today with f/u with me in 2 weeks Coding Level of Care Code 62809 IN/OBS DISCH 30 MIN/LESS Diagnoses S/P laparoscopic cholecystectomy Z90.49
== END 2023-09-15 10:18 | disposition home or self-care (01) ==
LOC: ED 10:41 → 3N 15:08 → OR 15:08
DX: E03.9 Hypothyroidism, unspecified; K82.1 Hydrops of gallbladder; K80.12 Calculus of gallbladder with acute and chronic cholecystitis without obstruction; F17.200 Nicotine dependence, unspecified, uncomplicated; K90.0 Celiac disease; Z79.899 Other long term (current) drug therapy